=== PATIENT | female | born 1985 | race Caucasian/White ===

== ENCOUNTER 2017-01-10 03:34 | Emergency (ER) | payer OTHER ==
[2017-01-10] MEDS ORDERED: Ketorolac 30 MG/ML SDV IVPUSH ONE (04:01)
[2017-01-10] MEDS ORDERED: Ondansetron 4 MG/2 ML SDV IVPUSH ONE (04:01)
[2017-01-10] MEDS ORDERED: Sodium Chloride 0.9% 10 ML Syringe FLUSH PRN (04:05)
--- NOTE | 2017-01-10 04:10 | EDM.PDOC ---
ED HPI GI/ABDOMINAL - General Chief Complaint: Abdominal Pain Stated Complaint: left lower quadrant pain Time Seen by Provider: 01/10/17 03:55 Source of Information: Reports: Patient, Family, RN, RN notes reviewed History Limitations: Reports: No limitations - History of Present Illness INITIAL COMMENTS - FREE TEXT/NARRATIVE: Patient presents to the emergency room at [facility] complaining of left lower quadrant pain. The patient states the pain began around 3:30 AM. The patient states that her pain is similar to kidney stone pain that she has had in the past. The patient denies any vomiting or diarrhea. The patient complains of severe nausea. The patient denies any UTI symptoms. No recent abdominal trauma/injury. No recent abdominal surgeries. The patient denies any blood in stool. Patient denies any radiation of the pain. The patient states the pain is colicky in nature. The patient has not taken any [id number] medications for her pain. Symptom Onset Date: 01/10/17 Symptom Onset Time: 03:30 Timing/Duration: Reports: Waxing/waning Location: LLQ Quality: Reports: cramping Severity: mild Associated Symptoms (-Female): Reports: nausea/vomiting - Related Data Allergies/ADRs: Allergies Allergy/AdvReac Type Severity Reaction Status Date / Time No Known Allergies Allergy Verified 01/10/17 03:35 Home Meds: Home Meds Nitrofurantoin Macrocrystal [Macrodantin] 100 mg PO BID #12 capsule 01/10/17 [Rx ] clonazePAM [Clonazepam] 1 tab PO DAILY PRN 01/10/17 [History] Past Medical History Psychiatric History: Reports: Anxiety - Past Surgical History HEENT Surgical History: Reports: Tonsillectomy Social & Family History - Tobacco Use Smoking Status *Q: Never Smoker ED ROS GENERAL - Review of Systems Review Of Systems: See Below Constitutional: Denies: fever, chills, weakness Respiratory: Denies: Shortness of Breath, Cough Cardiovascular: Denies: Chest pain, Palpitations GI/Abdominal: Reports: Abdominal pain, Nausea. Denies: Diarrhea, Vomiting : Reports: no symptoms Skin: Reports: no symptoms Neurological: Reports: No Symptoms. Denies: Dizziness, Headache, Numbness, Paresthesia, Tingling ED EXAM, GI/ABD - Physical Exam Exam: See Below Exam Limited By: No limitations General Appearance: alert, no apparent distress, obese Respiratory/Chest: no respiratory distress, lungs clear, normal breath sounds Cardiovascular: regular rate, rhythm GI/Abdominal: soft, hypoactive bowel sounds, tenderness (LLQ). No: distention, guarding, rebound (Female) Exam: Deferred Neurological: alert, oriented Skin Exam: Warm, Dry, Intact, Normal color, No rash Course - Vital Signs Last Recorded V/S: Last Vital Signs Temp 36.8 C 01/10/17 04:43 Pulse 75 01/10/17 04:43 Resp 16 01/10/17 04:43 BP 120/67 01/10/17 04:43 Pulse Ox 96 01/10/17 04:43 - Orders/Labs/Meds Orders: Active Orders 24 hr Category Date Time Status Abdomen Pelvis wo Cont [CT] Stat Exams 01/10/17 04:00 Taken Sodium Chloride 0.9% [Normal Saline] 1,000 ml Med 01/10/17 04:15 Active IV ASDIRECTED Sodium Chloride 0.9% [Saline Flush] Med 01/10/17 04:05 Active 10 ml FLUSH ASDIRECTED PRN Peripheral IV Insertion Adult [OM.PC] Routine Oth 01/10/17 04:05 Ordered Medication Orders Sodium Chloride (Normal Saline) 1,000 mls @ 999 mls/hr IV ASDIRECTED POOL Last Admin: 01/10/17 04:07 Dose: 999 mls/hr Sodium Chloride (Saline Flush) 10 ml FLUSH ASDIRECTED PRN PRN Reason: Keep Vein Open Labs: Laboratory Tests 01/10/17 01/10/17 01/10/17 Range/Units 04:19 04:19 04:39 WBC 12.7 H (4.0-10.0) x10^3/uL RBC 4.10 (4.00-5.50) x10^6/uL Hgb 12.1 (12.0-16.0) g/dL Hct 36.9 (33.0-47.0) % MCV 90.0 (78.0-93.0) fL MCH 29.5 (26.0-32.0) pg MCHC 32.8 (32.0-36.0) g/dL RDW Coeff of Flavio 13.6 (10.0-15.0) % Plt Count 279 (130-400) x10^3/uL Neut % (Auto) 64.7 (50.0-80.0) % Lymph % (Auto) 28.1 (25.0-50.0) % Calhoun % (Auto) 5.9 (2.0-11.0) % Eos % (Auto) 1.1 (0.0-4.0) % Baso % (Auto) 0.2 (0.2-1.2) % Sodium 142 (136-145) mmol/L Potassium 3.9 (3.5-5.1) mmol/L Chloride 107 (98-107) mmol/L Carbon Dioxide 28 (21-32) mmol/L BUN 13 (7-18) mg/dL Creatinine 0.7 (0.55-1.02) mg/dL Est Cr Clr Drug Dosing TNP Estimated GFR (MDRD) > 60 Glucose 122 H (74-106) mg/dL Calcium 8.0 L (8.5-10.1) mg/dL Urine Color (YELLOW) Urine Appearance (CLEAR) Urine pH (5.0-8.0) Ur Specific [place] Urine Protein (NEGATIVE) mg/dL Urine Glucose (UA) (NEGATIVE) mg/dL Urine Ketones (NEGATIVE) mg/dL Urine Occult Blood (NEGATIVE) Urine Nitrite (NEGATIVE) Urine Bilirubin (NEGATIVE) Urine Urobilinogen (0.2) EU/dL Ur Leukocyte Esterase (NEGATIVE) Urine RBC (NOT SEEN) /HPF Urine WBC (NOT SEEN) /HPF Ur Squamous Epith Cells (NEGATIVE) /HPF Urine Bacteria (NEGATIVE) /HPF Urine Mucus (NEGATIVE) /LPF Urine Yeast (Budding) Urine HCG, Qual Negative (NEGATIVE) 01/10/17 Range/Units 04:39 WBC (4.0-10.0) x10^3/uL RBC (4.00-5.50) x10^6/uL Hgb (12.0-16.0) g/dL Hct (33.0-47.0) % MCV (78.0-93.0) fL MCH (26.0-32.0) pg MCHC (32.0-36.0) g/dL RDW Coeff of Flavio (10.0-15.0) % Plt Count (130-400) x10^3/uL Neut % (Auto) (50.0-80.0) % Lymph % (Auto) (25.0-50.0) % [place] % (Auto) (2.0-11.0) % Eos % (Auto) (0.0-4.0) % Baso % (Auto) (0.2-1.2) % Sodium (136-145) mmol/L Potassium (3.5-5.1) mmol/L Chloride (98-107) mmol/L Carbon Dioxide (21-32) mmol/L BUN (7-18) mg/dL Creatinine (0.55-1.02) mg/dL Est Cr Clr Drug Dosing Estimated GFR (MDRD) Glucose (74-106) mg/dL Calcium (8.5-10.1) mg/dL Urine Color Yellow (YELLOW) Urine Appearance Turbid H (CLEAR) Urine pH 5.5 (5.0-8.0) Ur Specific [place] >=1.030 Urine Protein Trace H (NEGATIVE) mg/dL Urine Glucose (UA) Negative (NEGATIVE) mg/dL Urine Ketones Negative (NEGATIVE) mg/dL Urine Occult Blood Large H (NEGATIVE) Urine Nitrite Positive H (NEGATIVE) Urine Bilirubin Negative (NEGATIVE) Urine Urobilinogen 0.2 (0.2) EU/dL Ur Leukocyte Esterase Trace H (NEGATIVE) Urine RBC 10-20 H (NOT SEEN) /HPF Urine WBC 0-5 (NOT SEEN) /HPF Ur Squamous Epith Cells Moderate H (NEGATIVE) /HPF Urine Bacteria Many H (NEGATIVE) /HPF Urine Mucus Few H (NEGATIVE) /LPF Urine Yeast (Budding) Few Urine HCG, Qual (NEGATIVE) Meds: Medications Generic Name Dose Route Start Last Admin Trade Name Freq PRN Reason Stop Dose Admin Sodium Chloride 1,000 mls @ 999 mls/hr 01/10/17 04:15 01/10/17 04:07 Normal Saline IV 999 mls/hr ASDIRECTED POOL Administration Sodium Chloride 10 ml 01/10/17 04:05 Saline Flush FLUSH ASDIRECTED PRN Keep Vein Open Discontinued Medications Generic Name Dose Route Start Last Admin Trade Name Freq PRN Reason Stop Dose Admin Ketorolac Tromethamine 30 mg 01/10/17 04:01 01/10/17 04:08 Toradol IVPUSH 01/10/17 04:02 30 mg ONETIME ONE Administration Ondansetron HCl 4 mg 01/10/17 04:01 01/10/17 04:08 Zofran IVPUSH 01/10/17 04:02 4 mg ONETIME ONE Administration - Radiology Interpretation Free Text/Narrative:: Right renal lesion with calcifications as described in scanned report. No ureteral stones; See scanned report CT Results Date: 01/10/17 CT Results Time: 05:54 Departure - Departure Time of Disposition: 06:05 Disposition: Home, Self-Care 01 Condition: good Clinical Impression: Urinary tract infection Qualifiers: Urinary tract infection type: acute cystitis Hematuria presence: with hematuria Qualified Code(s): N30.01 - Acute cystitis with hematuria Ovarian cyst Qualifiers: Laterality: right Qualified Code(s): N83.201 - Unspecified ovarian cyst, right side Prescriptions: Nitrofurantoin Macrocrystal [Macrodantin] 100 mg PO BID #12 capsule Instructions: Urinary Tract Infection, Adult, Ovarian Cyst Referrals: PCP,Unknown [Primary Care Provider] - Forms: ED Department Discharge Additional Instructions: 1. Stay well hydrated and rest 2. Take antibiotics for the full coarse, even if you are feeling better 3. Avoid sexual activity while on the antibiotics 4. Drink cranberry juice 5. Recommend an ultrasound to evaluation pelvic structures 6. See your Primary as symptoms warrant - Problem List Review Problem List Initiated/Reviewed/Updated: Yes - My Orders Last 24 Hours: My Active Orders 01/10/17 04:00 Abdomen Pelvis wo Cont [CT] Stat 01/10/17 04:05 Sodium Chloride 0.9% [Saline Flush] 10 ml FLUSH ASDIRECTED PRN Peripheral IV Insertion Adult [OM.PC] Routine 01/10/17 04:15 Sodium Chloride 0.9% [Normal Saline] 1,000 ml IV ASDIRECTED - Assessment/Plan Last 24 Hours: My Active Orders 01/10/17 04:00 Abdomen Pelvis wo Cont [CT] Stat 01/10/17 04:05 Sodium Chloride 0.9% [Saline Flush] 10 ml FLUSH ASDIRECTED PRN Peripheral IV Insertion Adult [OM.PC] Routine 01/10/17 04:15 Sodium Chloride 0.9% [Normal Saline] 1,000 ml IV ASDIRECTED
[2017-01-10] MEDS ORDERED: Sodium Chloride 0.9% 1,000 ML IV SCH (04:15)
[2017-01-10 04:38] LABS: CHLORIDE,CL 107 mmol/L (98-107); SODIUM,NA 142 mmol/L (136-145)
[2017-01-10 04:44] VITALS: BP 120/67
[2017-01-10] MEDS ORDERED: Take Home: Nitrofurantoin Monohydrate/Macrocrystalline 100 MG, 2 Cap Pack PO ONE (06:08)
== END 2017-01-10 06:20 | disposition home or self-care (01) ==
LOC: VM.ED 03:34
DX: N30.01 Acute cystitis with hematuria (principal); N83.201 Unspecified ovarian cyst, right side; F41.9 Anxiety disorder, unspecified; Z79.899 Other long term (current) drug therapy
CPT/HCPCS: 36415; 74176; 80048; 81001; 81025; 85025; 96361; 96374; 96375; 99284; A9270; J1885; J2405; J7030

== ENCOUNTER 2017-11-15 22:34 | Emergency (ER) | payer OTHER ==
--- NOTE | 2017-11-16 00:55 | EDM.PDOC ---
ED HPI GENERAL MEDICAL PROBLEM - General Chief Complaint: Upper Extremity Injury/Pain Stated Complaint: HAND Time Seen by Provider: 11/15/17 22:38 Source of Information: Reports: Patient History Limitations: Reports: No Limitations - History of Present Illness INITIAL COMMENTS - FREE TEXT/NARRATIVE: Pt. presents to ER with complaints of R hand pain. Pt. states that she "punched a wall" because her 8 and 11 year old children were misbehaving. She complains of pain in the area of the 4th and 5th metacarpal. Denies any injury to the wrist or forearm. Onset: Today Duration: Constant Location: Reports: Upper Extremity, Right Quality: Reports: Ache Severity: Moderate Improves with: Reports: Rest Worsens with: Reports: Movement Right Hand Pain Score (Numeric/FACES): 7 - Related Data Allergies Allergy/AdvReac Type Severity Reaction Status Date / Time No Known Allergies Allergy Verified 11/15/17 22:41 Home Meds: Home Meds clonazePAM [Clonazepam] 1 tab PO DAILY PRN 01/10/17 [History] Albuterol [Proair HFA] 1 - 2 inh INH ASDIRECTED PRN 11/15/17 [History] Past Medical History Psychiatric History: Reports: Anxiety - Past Surgical History HEENT Surgical History: Reports: Tonsillectomy Social & Family History - Tobacco Use Smoking Status *Q: Never Smoker Review of Systems - Review of Systems Review Of Systems: See Below Constitutional: Reports: No Symptoms Musculoskeletal: Reports: Hand Pain (4th and 5th metacarpal) Skin: Reports: No Symptoms Neurological: Reports: No Symptoms ED EXAM, GENERAL - Physical Exam Exam: See Below Exam Limited By: No Limitations General Appearance: Alert, WD/WN, No Apparent Distress Extremities: Limited Range of Motion, Other (pain and edema to dorsum of R hand) Neurological: Alert, Oriented, CN II-XII Intact, Normal Cognition, Normal Gait, Normal Reflexes, No Motor/Sensory Deficits Course - Vital Signs Last Recorded V/S: Last Vital Signs Temp 35.6 C 11/15/17 22:38 Pulse 86 11/15/17 22:38 Resp 18 11/15/17 22:38 BP 128/80 11/15/17 22:38 Pulse Ox 94 L 11/15/17 22:38 - Orders/Labs/Meds Orders: Active Orders 24 hr Category Date Time Status Hand Comp Min 3V Rt [CR] Stat Exams 11/15/17 22:47 Taken - Radiology Interpretation Free Text/Narrative:: No obvious fx. or dislocation Departure - Departure Time of Disposition: 23:25 Disposition: Home, Self-Care 01 Condition: Good Clinical Impression: Hand contusion - Discharge Information Instructions: Hand Contusion, [id number] Referrals: Sophia Torres DIRECTOR CALL [Primary Care Provider] - Forms: ED Department Discharge Additional Instructions: Ice hand for 15 min every hour. Tylenol and ibuprofen for discomfort. Follow-up in clinic in 7-10 days of not gradually improving. - My Orders Last 24 Hours: My Active Orders 11/15/17 22:47 Hand Comp Min 3V Rt [CR] Stat - Assessment/Plan Last 24 Hours: My Active Orders 11/15/17 22:47 Hand Comp Min 3V Rt [CR] Stat
== END 2017-11-15 23:25 | disposition home or self-care (01) ==
LOC: VM.ED 22:34
DX: S60.221A Contusion of right hand, initial encounter (principal); Z79.899 Other long term (current) drug therapy; W22.8XXA Striking against or struck by other objects, initial encounter
CPT/HCPCS: 73130-RT; 99283